=== PATIENT | female | born 1955 | race Caucasian/White ===

== ENCOUNTER 2019-12-25 15:53 | Emergency (ER) | payer OTHER, SELFPAY ==
[2019-12-25 15:55] VITALS: BP 137/82; PULSE 95; RESP 16; TEMP 36.9; O2SAT 99; BMI 20.9
--- NOTE | 2019-12-25 16:04 | DI.RAD.S_ITS ---
PROCEDURE: XR ABDOMEN MIN 2V INDICATIONS: two weeks constipation TECHNIQUE: 2 views of the abdomen were acquired. COMPARISON: None. FINDINGS: Surgical changes and devices: None. Bowel: No pneumoperitoneum. Gaseous prominence is seen of the colon, with loops measuring up to 7.6 cm. No dilated loops of small bowel are seen. Soft tissues: No masses; visualized solid organ contours appear normal in size. No suspicious abdominal calcifications. Bones: No suspicious bony abnormalities. IMPRESSION: Gaseous prominence of the colon is seen, without abnormal stool volumes to suggest constipation. If it would be helpful for clinical management decision making, please consider a dedicated CT of the abdomen and pelvis for further evaluation. Dictated by: Mazin Castillo M.D. on 12/25/2019 at 15:26 Approved by: Mazin Castillo M.D. on 12/25/2019 at 15:27
[2019-12-25 16:41] LABS: Add Manual Diff / Slide Review NO; Basophils Absolute Auto 100 /uL (0-100); Basophils Percent Auto 0.9 % (0-2); Eosinophils Absolute Auto 0 /uL (0-450); Eosinophils Percent Auto 0.3 % (2-4); Hematocrit 39.4 % (36-46); Hemoglobin 13.4 g/dL (12.0-16.0); Lymphocytes Absolute Auto 1900 /uL (1100-4500); Lymphocytes Percent Auto 25.9 % (25-40); Mean Corpuscular HGB Conc 34.1 % (30-36); Mean Corpuscular Hemoglobin 32.7 PG (26-34); Mean Corpuscular Volume 95.7 fL (80-100); Monocytes Absolute Auto 600 /uL (0-900); Monocytes Percent Auto 8.3 % (3-14); Neutrophils Absolute Auto 4700 /uL (1500-7000); Neutrophils Percent Auto 64.6 % (50-75); Platelet Count 286 X10^3/uL (150-400); Red Blood Cell Count 4.12 X10^6/uL (4.0-5.2); Red Cell Distribution Width 13.1 % (11.6-14.8); White Blood Cell Count 7.3 X10^3/uL (4.5-11.0)
[2019-12-25 16:51] LABS: Alanine Aminotransferase 20 IU/L (<35); Albumin 4.3 g/dL (3.5-5.0); Albumin Globulin Ratio 1.3 (1.0-2.8); Alkaline Phosphatase 45 U/L (38-126); Aspartate Aminotransferase 31 IU/L (14-36); BUN Creatinine Ratio 15.7 (6-22); Bilirubin Total 0.3 mg/dL (0.2-1.3); Blood Urea Nitrogen 13 mg/dL (7-17); Calcium 9.2 mg/dL (8.4-10.2); Carbon Dioxide 29 mmol/L (22-32); Chloride 102 mmol/L (98-107); Estimated Glomerular Filt Rate > 60.0 mL/min (>60); Globulin 3.3 g/dL (1.7-4.1); Glucose 125 mg/dL (80-110); HEMOLYSIS < 15 (0-50); Lipase 107 U/L (23-300); Potassium 4.1 mmol/L (3.4-5.1); Sodium 135 mmol/L (137-145); Total Protein 7.6 g/dL (6.3-8.2)
--- NOTE | 2019-12-25 17:13 | ED_ITS ---
HPI - Abdominal Pain General Chief Complaint: Abdominal Pain Stated Complaint: CONSTIPATION 2 WKS LOW BACK PAIN Time Seen by Provider: 12/25/19 16:40 Source: patient Mode of arrival: Ambulatory Limitations: no limitations History of Present Illness HPI narrative: Patient is a 64-year-old female who has chronic constipation presenting with constipation. She had a CT scan done on 12/20/2019 for right flank pain and lower abdominal pain. This was done as an outpatient results showed generalized colonic obstipation within out abdomen and pelvis on right and left. She has since had magnesium citrate which she said she had a small amount of stool yesterday but nothing since. This is been ongoing and worsening over the last 2 weeks. She denies any worsening abdominal pain no nausea vomiting or fever. She has been on multiple [id number] laxatives and stool softeners without any relief. She says this is the worst it has ever been. Her primary care doctor put her on Amitiza which she says has not helped. MD complaint: abdominal pain Related Data Home Medications Medication Instructions Recorded Confirmed lorazepam 1 mg tablet 1 mg PO BEDTIME PRN 06/06/18 12/25/19 trazodone 150 mg tablet 150 mg PO DAILY 06/06/18 12/25/19 Previous Rx's Medication Instructions Recorded peg 3350-electrolytes [Golytely] 240 ml PO Q10M PRN #1 each 12/25/19 Allergies Allergy/AdvReac Type Severity Reaction Status Date / Time Sulfa (Sulfonamide Allergy Intermediate rash Verified 12/25/19 15:59 Antibiotics) [SULFA (SULFONAMIDE ANTIBIOTICS)] Penicillins [PENICILLINS] AdvReac Intermediate rash Verified 12/25/19 15:59 Review of Systems Review of Systems Narrative: GENERAL: Denies chills, fatigue, malaise, fever, sweats, travel HEENT: Denies sinus pain, ear pain, sore throat, difficulty swallowing, neck pain RESPIRATORY: Denies dyspnea, cough, wheezing, hemoptysis, sputum. CARDIOVASCULAR: Denies chest pain, palpitations, orthopnea, edema GASTROINTESTINAL: She HPI : Denies dysuria, frequency, incontinence, hematuria, urinary retention, flank pain. MUSCULOSKELETAL: Denies weakness, joint pain, or bony pain SKIN: No rash, no erythema, no pruritus NEUROLOGIC: Denies weakness, dizziness, headache, numbness, change in speech, confusion PSYCHIATRIC: No concerning psychosocial issues. 12 point review of systems is negative except for those stated above and HPI Patient History Medical History Constipation (Acute) Social History Smoking Status: Never smoker Smoking Status: Never smoker alcohol intake frequency: 0-2 drinks per day Alcohol type: wine Substance Use Type: does not use Exam Initial Vital Signs Initial Vital Signs: Vital Signs Temperature 98.4 F 12/25/19 15:55 Pulse Rate 95 H 12/25/19 15:55 Respiratory Rate 16 12/25/19 15:55 Blood Pressure 137/82 12/25/19 15:55 Pulse Oximetry 99 12/25/19 15:55 GENERAL: Well-appearing, well-nourished and in no acute distress. HEENT: Head atraumatic,EOMI, pupils reactive, face symmetric, moist mucous membranes CARDIOVASCULAR: Regular rate and rhythm without murmurs, rubs or gallops. RESPIRATORY: Breath sounds equal bilaterally, no wheezes rales or rhonchi. ABDOMEN: Soft, nontender. Normoactive bowel sounds all 4 quadrants. No guarding or rebound. EXTREMITIES: Normal range of motion, no clubbing or edema. Neurovascularly intact NEUROLOGICAL: Alert and oriented x4.Normal gait and speech. SKIN: Warm, dry, no laceration, no petechiae, no rashes or lesions. Course Orders Ordered: ED Orders 12/25/19 16:04 XR abdomen min 2V Stat 12/25/19 16:34 Complete Blood Count AUTO DIFF Stat Comprehensive Metabolic Panel Stat Lipase Stat Vital Signs Vital signs: Vital Signs - 8 hr 12/25/19 15:55 12/25/19 18:07 Temperature 98.4 F Pulse Rate 95 H 75 Respiratory Rate 16 14 Blood Pressure 137/82 134/76 Pulse Oximetry 99 100 MDM - Abdominal Pain Lab Data Attestation: I reviewed the patient's lab results. Result diagrams: 12/25/19 16:34 12/25/19 16:34 Labs: Lab Results 12/25/19 12/25/19 Range/Units 16:34 16:34 WBC 7.3 (4.5-11.0) X10^3/uL RBC 4.12 (4.0-5.2) X10^6/uL Hgb 13.4 (12.0-16.0) g/dL Hct 39.4 (36-46) % MCV 95.7 (80-100) fL MCH 32.7 (26-34) PG MCHC 34.1 (30-36) % RDW 13.1 (11.6-14.8) % Plt Count 286 (150-400) X10^3/uL Neut % (Auto) 64.6 (50-75) % Lymph % (Auto) 25.9 (25-40) % [place] % (Auto) 8.3 (3-14) % Eos % (Auto) 0.3 L (2-4) % Baso % (Auto) 0.9 (0-2) % Neut # (Auto) 4700 (0854-5539) /uL Lymph # (Auto) 1900 (1849-1728) /uL [place] # (Auto) 600 (0-900) /uL Eos # (Auto) 0 (0-450) /uL Baso # (Auto) 100 (0-100) /uL Sodium 135 L (137-145) mmol/L Potassium 4.1 (3.4-5.1) mmol/L Chloride 102 (98-107) mmol/L Carbon Dioxide 29 (22-32) mmol/L BUN 13 (7-17) mg/dL Creatinine 0.83 (0.52-1.04) mg/dL Estimated GFR > 60.0 (>60) mL/min BUN/Creatinine Ratio 15.7 (6-22) Glucose 125 H (80-110) mg/dL Calcium 9.2 (8.4-10.2) mg/dL Total Bilirubin 0.3 (0.2-1.3) mg/dL AST 31 (14-36) IU/L ALT 20 (<35) IU/L Alkaline Phosphatase 45 (38-126) U/L Total Protein 7.6 (6.3-8.2) g/dL Albumin 4.3 (3.5-5.0) g/dL Globulin 3.3 (1.7-4.1) g/dL Albumin/Globulin Ratio 1.3 (1.0-2.8) Lipase 107 (23-300) U/L Imaging Data Abdominal x-ray: Radiologist's Impression: PROCEDURE: XR ABDOMEN MIN 2V INDICATIONS: two weeks constipation TECHNIQUE: 2 views of the abdomen were acquired. COMPARISON: None. FINDINGS: Surgical changes and devices: None. Bowel: No pneumoperitoneum. Gaseous prominence is seen of the colon, with loops measuring up to 7.6 cm. No dilated loops of small bowel are seen. Soft tissues: No masses; visualized solid organ contours appear normal in size. No suspicious abdominal calcifications. Bones: No suspicious bony abnormalities. IMPRESSION: Gaseous prominence of the colon is seen, without abnormal stool volumes to suggest constipation. If it would be helpful for clinical management decision making, please consider a dedicated CT of the abdomen and pelvis for further evaluation. Dictated by: Mazin Castillo M.D. on 12/25/2019 at 15:26 Approved by: Mazin Castillo M.D. on 12/25/2019 at 15:27 MDM Narrative Medical decision making narrative: Patient had a CT 5 days ago it showed obsti pation. X-ray today does not actually show constipation she has been taking multiple hcmt-rjg-iirtvcv laxatives she actually has had bowel movement but it has been small liquidy with magnesium citrate. Her abdomen is soft nontender blood work is within normal limits.At this time I do not think repeat abdominal CT is indicated, however I did discuss with her her pain intensifies that she should return for probable repeat CT. She is requesting something more for constipation. I will give her a prescription for GoLYTELY however at this time based on her x-ray I would recommend that she hold. She has been having some right lower back pain with radiation around in down her leg which sounds like sciatica. Discharge Plan Departure Patient Disposition: Home Clinical Impression: Constipation Qualifiers: Constipation type: slow transit constipation Qualified Code(s): K59.01 - Slow transit constipation Discharge Date/Time: 12/25/19 18:10 Instructions: DI for Constipation Activity Restrictions/Additional Instructions: *You have been diagnosed with constipation *What to do: You do need a GI referral. At this time I do think need repeat CT scan your CT scan last week did show constipation however your x-ray today did not show constipation your blood work is overall reassuring. I recommend you continue to increase water and high-fiber diet and exercise. I recommend a GI consult please talk to your primary provider about this. *Continue to take medications as directed GoLYTELY packet if needed for constipation *Follow up with your primary care provider in 2-3 days *Return to ER if you should have increasing abdominal pain vomiting fever chills or any new, worsening or concerning symptoms Prescriptions: New Golytely 227.1-21.5-6.36 gram powder in packet 240 ml PO Q10M PRN (Reason: constipation) Qty: 1 RF: 0 No Action trazodone 150 mg tablet 150 mg PO DAILY RF: 0 lorazepam 1 mg tablet 1 mg PO BEDTIME PRNRF: 0 Referrals: Hazel Delong PA-C [Primary Care Provider] -
[2019-12-25 18:07] VITALS: BP 134/76; PULSE 75; RESP 14; O2SAT 100
== END 2019-12-25 18:10 | disposition home or self-care (01) ==
PROVIDERS: Emergency Provider Emergency Medicine; PCP Physician Assistant Medical
DX: K59.01 Slow transit constipation (principal)
CPT/HCPCS: 36415; 74019; 80053; 83690; 85025; 99283; 99284

== ENCOUNTER → 2020-02-12 14:08 | Outpatient (CLI) | payer OTHER, SELFPAY ==
--- NOTE | 2020-02-12 14:10 | DI.RAD.S_ITS ---
PROCEDURE: XR LUMBAR SPINE MIN 4V INDICATIONS: low back pain TECHNIQUE: 4 views of the lumbar spine were acquired. COMPARISON: [facility], , XR ABDOMEN MIN 2V, 12/25/2019, 15:53. FINDINGS: Bones: 5 nonrib-bearing vertebrae with rudimentary L1 ribs/transverse processes. Mild retrolisthesis of L2 on L3. Minimal retrolisthesis of L3 on L4. No vertebral body compression fractures. Small anterior vertebral body osteophytes. No suspicious bony lesions. Soft tissues: Overlying bowel gas pattern is normal. No suspicious soft tissue calcifications. Oblique images: No pars defects. IMPRESSION: Edfv-hz-eibovtwl retrolisthesis of L3 on L4. Mild degenerative change. Dictated by: Ravi Hannon M.D. on 02/12/2020 at 15:59 Approved by: Ravi Hannon M.D. on 02/12/2020 at 16:04
== END ==
PROVIDERS: PCP Physician Assistant Medical; Referring Provider Physical Medicine & Rehabilitation; Visit Provider Physical Medicine & Rehabilitation
DX: M54.5 Low back pain (principal); M47.816 Spondylosis without myelopathy or radiculopathy, lumbar region; M47.817 Spondylosis without myelopathy or radiculopathy, lumbosacral region; M43.16 Spondylolisthesis, lumbar region; M53.3 Sacrococcygeal disorders, not elsewhere classified
CPT/HCPCS: 72110; 99214

== ENCOUNTER 2024-10-22 16:29 | Emergency (ER) | payer OTHER, SELFPAY ==
[2024-10-22 16:38] VITALS: BP 117/61; PULSE 97; RESP 14; TEMP 36.5; O2SAT 99; BMI 19.7
[2024-10-22] MEDS: FLEETS ENEMA 1 EACH PR (17:15)
[2024-10-22 18:41] VITALS: BP 120/65; PULSE 84; RESP 16; O2SAT 97
--- NOTE | 2024-10-22 20:31 | ED.SKABFB ---
HPI - Skin/Abscess/Foreign Bdy General Chief complaint: Skin/Abscess/Foreign Body Stated complaint: Constipation, abd pain x 1 week Time Seen by Provider: 10/22/24 18:00 Source: patient Mode of arrival: Ambulatory History of Present Illness HPI narrative: 69-year-old woman with history of a ?twisting gut? and longstanding constipation. Sounds like she does not have a solid regimen for helping herself have regular bowel movements. Sometimes will use an aloe senna laxative a couple of times a week. She was having increasing abdominal pain, feels like there is large amount of stool in her rectum that is simply can not come out. She is concerned that she has hemorrhoids. In the past she has had colonoscopies that she was not able to get completely cleaned out but was also told she did not have any significant pathology. No fevers or chills. Last bowel movement was 3 days ago. Related Data Home Medications ?Medication ?Instructions ?Recorded ?Confirmed lorazepam 1 mg tablet 1 mg PO BEDTIME PRN 06/06/18 12/25/19 trazodone 150 mg tablet 150 mg PO DAILY 06/06/18 12/25/19 Previous Rx's ?Medication ?Instructions ?Recorded meloxicam 15 mg tablet 15 mg PO DAILY #30 tabs 02/12/20 Allergies Allergy/AdvReac Type Severity Reaction Status Date / Time Sulfa (Sulfonamide Allergy Intermediate rash Verified 02/12/20 15:21 Antibiotics) (SULFA (SULFONAMIDE ANTIBIOTICS)) Penicillins (PENICILLINS) AdvReac Intermediate rash Verified 02/12/20 15:21 Review of Systems Review of Systems Narrative: Pertinent positive and negative findings as per HPI Patient History Medical History (Updated 10/22/24 @ 20:36 by Guerline Toribio MD) Lumbosacral spondylosis SI (sacroiliac) joint dysfunction Constipation Surgical History Status post right breast lumpectomy History of Mohs surgery for squamous cell carcinoma in situ of skin Family History Father Congestive heart failure Mother Failure to thrive Social History alcohol intake: current alcohol intake frequency: 0-2 drinks per day Alcohol type: wine Exam Initial Vital Signs Initial Vital Signs: Vital Signs Temperature 97.7 F 10/22/24 16:38 Pulse Rate 97 H 10/22/24 16:38 Respiratory Rate 14 10/22/24 16:38 Blood Pressure 117/61 10/22/24 16:38 Pulse Oximetry 99 10/22/24 16:38 Oxygen Delivery Method Room Air 10/22/24 16:38 General: Alert appropriate in no acute distress Respiratory: Able to speak in full sentences, no obvious respiratory distress Skin: No obvious rashes, warm and dry Neurologic: Grossly intact no obvious asymmetries or abnormalities Psych: appropriate insight and affect, cooperative Rectal exam: Enema has been administered. After approximately 30 minutes with no relief, rectal exam with manual disimpaction is performed by me. Stool is actually fairly soft, no significant internal or external hemorrhoids. Significant relief of the impacted portion. Patient was then helped to the bathroom to complete relieving herself Course Orders Ordered: Discontinued Medications Sodium Biphosphate/Sodium Phosphate (Fleets Enema) 1 each PA NOW ONE Stop: 10/22/24 16:50 Last Admin: 10/22/24 17:15 Dose: 1 each Documented By: BALWINDER Vital Signs Vital signs: Vital Signs - 8 hr 10/22/24 16:38 10/22/24 18:41 Temperature 97.7 F Pulse Rate 97 H 84 Respiratory Rate 14 16 Blood Pressure 117/61 120/65 Pulse Oximetry 99 97 Oxygen Delivery Method Room Air Room Air MDM - Skin/Abscess/Foreign Bdy MDM Narrative Medical decision making narrative: 69-year-old woman with a tortuous colon, chronic constipation with inability to have a bowel movement for the last 3 days increasing abdominal pain. With manual disimpaction and an enema we are able to get a large volume of stool out, her abdominal pain has resolved and she is feeling significantly relieved. We talked about regular bowel regimens including daily fiber and MiraLax and then laxative as infrequently as possible to see if she can help her bowels move more regularly and be a bit more comfortable. There is no evidence for cancers, tumors obstructions or other concerns that would require imaging or hospitalization and she is safe for discharge Discharge Plan Departure Patient Disposition: Home Clinical Impression: Constipation Qualifiers: Constipation type: slow transit constipation Qualified Code(s): K59.01 - Slow transit constipation Instructions: DI for Constipation Activity Restrictions/Additional Instructions: Thank you for coming in today I am sorry that you continue to have so much difficulty with bowel movements. Findings some sort of bowel regimen that keeps your stool volume up and soft so that your body can work as naturally as possible can be helpful. I would recommend a fiber supplement daily as well as a full scoop of MiraLax daily. If you still have not had a bowel movement after 2 days then using the aloe/senna laxative that you have can be tried. If you find that you are getting worse or develop any new symptoms, please feel free to return to the emergency department for further evaluation. Prescriptions: No Action meloxicam 15 mg tablet 15 mg PO DAILY Qty: 30 2RF trazodone 150 mg tablet 150 mg PO DAILY lorazepam 1 mg tablet 1 mg PO BEDTIME PRN Referrals: Hazel Delong PA-C [Primary Care Provider, Medical] Stand Alone Forms: Patient Portal/API
== END 2024-10-22 20:40 | disposition home or self-care (01) ==
PROVIDERS: Emergency Provider Emergency Medicine; PCP Physician Assistant Medical
DX: K59.01 Slow transit constipation (principal)
CPT/HCPCS: 99282

== ENCOUNTER → 2025-02-07 16:46 | Outpatient (ROUT) | payer OTHER, SELFPAY ==
[2025-02-07 17:35] LABS: Influenza A - CEPHEID Flu A NEGATIVE (NEGATIVE); Influenza B - CEPHEID Flu B NEGATIVE (NEGATIVE)
[2025-02-07 18:18] LABS: COVID-19 CEPHEID 4-PLEX PCR Negative (Negative)
== END ==
LOC: LAB 16:47
PROVIDERS: PCP Physician Assistant Medical; Visit Provider Family Medicine
DX: R05.1 Acute cough (principal)
CPT/HCPCS: 87637